=== PATIENT | female | born 1990 | race Caucasian/White ===

== ENCOUNTER 2018-08-08 08:48 | Inpatient (IN) | payer BC, MEDICAID ==
[2018-08-08] MEDS ORDERED: DEXTROSE 5%-LACTATED RINGERS 1,000 ML IV PRN (09:22)
[2018-08-08] MEDS ORDERED: OXYTOCIN/DEXTROSE 5%-WATER 30 UNITS/500 ML BAG IV ONE ×2 (09:22→15:11)
[2018-08-08] MEDS ORDERED: ONDANSETRON HCL/PF 2 MG/ML VIAL IV PRN ×2 (09:22→09:51)
[2018-08-08] MEDS ORDERED: RINGER'S SOLUTION,LACTATED 1,000 ML IV ONE (09:22)
--- NOTE | 2018-08-08 09:48 | HP ---
Chief Complaint - Chief Complaint Date of Service: 08/08/18 Time of Service: 09:29 Chief Complaint: contractions, leaking of fluid History of Present Illness: 27 yo at 39 4/7 wks presents to L&D complaining of contractions for the past 24 hours with clear LOF around 0830 this am. This complicated by mild asthma, anxiety/depression, morbid obesity, and migraines. Rh negative Rubella immune GBS negative Medical History (Last Reviewed 08/08/18 @ 09:38 by Wilian Campbell DO) Generalized anxiety disorder (Chronic) Major depression (Chronic) Morbid obesity Onset Date: 06/13/13 Oligomenorrhea Onset Date: 06/26/16 Anxiety Asthma Onset Date: Unknown Cholecystitis Onset Date: Unknown Depression Onset Date: Unknown Irregular bowel habits Irregular heart beat Irregular menses Onset Date: Unknown Major depressive disorder, recurrent episode Migraine Onset Date: Unknown Sinusitis Onset Date: Unknown Abdominal pain, RUQ Onset Date: 01/10/15 Pleurisy Onset Date: ~2010 Female infertility associated with anovulation Onset Date: 06/13/13 Surgical History: Surgical History (Last Reviewed 08/08/18 @ 09:38 by Wilian Campbell DO) Femur fracture, left Onset Date: ~2016 Hx laparoscopic cholecystectomy Onset Date: 10/16/15 Previous back surgery Onset Date: ~12/2011 Family History: Family History (Last Reviewed 08/08/18 @ 09:38 by Wilian Campbell DO) Father Hypothyroidism Diabetes Grandmother Diabetes Hypertension Grandmother Breast cancer Mother Thyroid disease Diverticulosis Uncle Diabetes Grandfather Hypertension Myocardial infarction Grandfather Hypertension Social History: Preferred Language [place] Abuse History No History of abuse Psych History No pertinent hx Review Of Systems (GEN) - Review of Systems EENTM: Present: No Symptoms Reported Respiratory: Present: No Symptoms Reported Cardiac: Present: No Symptoms Reported Abdominal: Present: No Symptoms Reported Genitourinary: Present: Other - contractions, LOF - clear Musculoskeletal: Present: No Symptoms Reported Neurological: Present: No Symptoms Reported Skin: Present: No Symptoms Reported Endocrine: Present: No Symptoms Reported Immunizations: IMMUNIZATION HX Immunizations Up to Date No History of Influenza Vaccine Yes Hx Pneumococcal Vaccination No Allergies/Adverse Reactions: Allergies Allergy/AdvReac Type Severity Reaction Status Date / Time lactose Allergy Severe severe Verified 08/07/18 08:57 abdominal pain, N/V, constipation cat dander Allergy Intermediate sneezing, Verified 08/07/18 08:57 itchy eyes & thraot rhinitis house dust Allergy Intermediate sneezing, Verified 08/07/18 08:57 itchy eyes & throat, rhinitis No Known Drug Allergies Allergy Verified 08/07/18 08:57 Home Medications: HOME MEDICATIONS vitamin,calcium,wmqzskpe-ezan-mkdbm acid tablet 1 tab PO DAILY [Last Taken 08/07/18 20:30] breast pump See Dose Instructions .ROUTE .MEDSUPPLY #1 ea 06/17/18 [Last Taken Unknown] loratadine 10 mg tablet 10 mg PO DAILY 07/01/18 [Last Taken 08/07/18 20:30] desvenlafaxine succinate ER 50 mg tablet,extended release 24 hr 50 mg PO DAILY # 30 tab 07/09/18 [Last Taken 08/07/18 20:30] Exam - Exam Vital Signs: Vital Signs - Last Taken Temp 36.6 C 08/08/18 09:21 Pulse 67 08/08/18 09:21 Resp 20 08/08/18 09:21 BP 120/81 08/08/18 09:21 Pulse Ox 100 08/08/18 09:21 Constitutional: Present: Alert, Oriented x3, Cooperative ENT Exam: Present: hearing grossly normal Breasts: Present: Exam deferred Respiratory: Present: lungs clear, no respiratory distress Cardiovascular/Chest: Present: regular rate, rhythm, no edema Abdomen: Present: soft, nontender, no rebound tenderness /Rectal: Present: Other - cervix - 3/90/-1, gross ROM - clear fluid Extremity: Present: no pedal edema, no calf tenderness Skin Exam: Present: normal color, warm/dry, no cyanosis Lymphatic: Present: no adenopathy Neurologic: Present: alert, oriented x 3, other - flattened affect Appearance: Present: appropriate appearance Eye contact: Present: cooperative, good eye contact Diagnostic Studies: NST reactive. Assessment/Plan - Assessment/Plan (1) SROM (spontaneous rupture of membranes) Problem: Acute (2) Labor established Problem: Acute (3) Migraines Problem: Inactive Qualifiers: Migraine type: unspecified Status migrainosus presence: without status migrainosus Intractability: not intractable Qualified Code(s): G43.909 - Migraine, unspecified, not intractable, without status migrainosus (4) Asthma Problem: Chronic Qualifiers: Asthma severity: mild Asthma persistence: intermittent Asthma complication type: uncomplicated Qualified Code(s): J45.20 - Mild intermittent asthma, uncomplicated (5) Generalized anxiety disorder Problem: Chronic (6) Major depression Problem: Chronic Qualifiers: Major depression recurrence: recurrent Active/Remission status: in remission of unspecified degree Qualified Code(s): F33.40 - Major depressive disorder, recurrent, in remission, unspecified
[2018-08-08] MEDS ORDERED: NALOXONE HCL 1 MG/1 ML SYRG IV PRN (09:51)
[2018-08-08] MEDS ORDERED: BUPIVACAINE HCL/0.9 % NACL/PF 250 ML EP PRN (09:51)
[2018-08-08] MEDS ORDERED: fentaNYL CITRATE/PF 50 MCG/ML AMPUL IT SCH (10:00)
--- NOTE | 2018-08-08 10:05 | ANES ---
Anesthesia Pre Procedure Eval Vitals/Labs: Last Vital Signs Temp 36.6 C 08/08/18 09:21 Pulse 67 08/08/18 09:21 Resp 20 08/08/18 09:21 BP 120/81 08/08/18 09:21 Pulse Ox 100 08/08/18 09:21 HOME MEDICATIONS vitamin,calcium,muraqklk-akid-zhwma acid tablet 1 tab PO DAILY [Last Taken 08/07/18 20:30] breast pump See Dose Instructions .ROUTE .MEDSUPPLY #1 ea 06/17/18 [Last Taken Unknown] loratadine 10 mg tablet 10 mg PO DAILY 07/01/18 [Last Taken 08/07/18 20:30] desvenlafaxine succinate ER 50 mg tablet,extended release 24 hr 50 mg PO DAILY # 30 tab 07/09/18 [Last Taken 08/07/18 20:30] Allergies/Adverse Reactions: Allergies Allergy/AdvReac Type Severity Reaction Status Date / Time lactose Allergy Severe severe Verified 08/08/18 09:42 abdominal pain, N/V, constipation cat dander Allergy Intermediate sneezing, Verified 08/08/18 09:42 itchy eyes & thraot rhinitis house dust Allergy Intermediate sneezing, Verified 08/08/18 09:42 itchy eyes & throat, rhinitis No Known Drug Allergies Allergy Verified 08/08/18 09:42 - Planned Procedure Planned Procedure: RULE OUT LABOR Medication List Reviewed:: Yes Allergies Verified: Yes Medical History (Last Reviewed 08/08/18 @ 09:38 by Wilian Campbell DO) Generalized anxiety disorder (Chronic) Major depression (Chronic) Morbid obesity Onset Date: 06/13/13 Oligomenorrhea Onset Date: 06/26/16 Anxiety Asthma Onset Date: Unknown Cholecystitis Onset Date: Unknown Depression Onset Date: Unknown Irregular bowel habits Irregular heart beat Irregular menses Onset Date: Unknown Major depressive disorder, recurrent episode Migraine Onset Date: Unknown Sinusitis Onset Date: Unknown Abdominal pain, RUQ Onset Date: 01/10/15 Pleurisy Onset Date: ~2010 Female infertility associated with anovulation Onset Date: 06/13/13 Surgical History (Last Reviewed 08/08/18 @ 10:04 by Conrado Wilcox CRNA) Femur fracture, left Onset Date: ~2016 Hx laparoscopic cholecystectomy Onset Date: 10/16/15 Previous back surgery Onset Date: ~12/2011 Family History (Last Reviewed 08/08/18 @ 10:04 by Conrado Wilcox CRNA) Father Hypothyroidism Diabetes Grandmother Diabetes Hypertension Grandmother Breast cancer Mother Thyroid disease Diverticulosis Uncle Diabetes Grandfather Hypertension Myocardial infarction Grandfather Hypertension - Family Anesthesia History Family History:: no untoward family reactions to anesthesia - Airway/Neck/Teeth Mallampatti Score: 2 Thyromental (T-M) distance: > 6 cm Mandibulo Hyoid distance: > 3 cm - Respiratory Respiratory: lungs clear, normal breath sounds Sleep Apnea currently treated: No Sleep Apnea by current assessment: No - Cardiovascular Patient History - Cardiac/Respiratory: No pertinent hx Tolerates Activity: Fair Heart Sounds: S1 & S2, Regular - Anesthesia Assessment and Plan ASA Class: PS, II, E Anesthesia Type Plan: Epidural
--- NOTE | 2018-08-08 15:10 | OR ---
Operative Report - Dictated Report Narrative: Spontaneous vaginal delivery of viable male at 1426 on 08/07/2018 with Apgars 8 and 8, weighing 3915 g in ANDREY position with tight nuchal cord 1. Cord clamping delayed approximately 1 minute Placenta delivered complete, intact, with three vessel cord Estimated blood loss: Probably 500 mL due to uterine atony which responded to Pitocin 30 mU/m I the and 800 g of Cytotec rectally 1 Anesthesia: epidural Lacerations: Second degree vaginal laceration (4 cm) repaired with 3-0 Vicryl Rapide History for MU Definition: * The number of deliveries resulting in a live the patient experienced prior to current hospitalization * The previous delivery of live twins or any live multiple gestation is considered one live event. *If primagravida or nulliparous is documented select zero for the number of previous live births. Live Events: 0
[2018-08-08] MEDS ORDERED: oxyCODONE HCL/ACETAMINOPHEN 1 TAB TABLET PO PRN (15:11)
[2018-08-08] MEDS ORDERED: BENZOCAINE/MENTHOL 81 SPRAY CAN TP PRN (15:11)
[2018-08-08] MEDS ORDERED: HYDROCORTISONE 30 APPL TUBE TP PRN (15:11)
[2018-08-08] MEDS ORDERED: SENNOSIDES 8.6 MG TABLET PO PRN (15:11)
[2018-08-08] MEDS ORDERED: GLYCERIN/WITCH HAZEL LEAF 40 APPL BOX TP PRN (15:11)
[2018-08-08] MEDS ORDERED: BISACODYL 10 MG SUPP.RECT RC PRN (15:11)
--- NOTE | 2018-08-08 16:36 | ANES ---
Post Anesthesia Assessment - Vital Signs Vitals: Last Vital Signs Temp 36.6 C 08/08/18 16:30 Pulse 76 08/08/18 16:30 Resp 20 08/08/18 16:30 BP 129/71 08/08/18 16:16 Pulse Ox 95 08/08/18 16:30 Airway Patency: Normal - Mental Status Level Of Consciousness: Awake - Pain Level Pain Score: 2 - N/V Assessment Nausea/Vomiting Presence: None Dehydration:: No
--- NOTE | 2018-08-08 16:36 | ANES ---
Post Anesthesia Discharge - Transfer of Care Transfer of Care handoff given to nurse: Yes - Anesthesia Post Op Note Anesthesia Post Op Note: Care transferred to OB RN
--- NOTE | 2018-08-08 16:40 | ANES ---
Anesthesia Procedure Note Procedure Note: ANESTHESIA PROCEDURE NOTE Date of Procedure: 08/08/2018 Time of procedure:[]. 1030 Performed by: Aldo Wilcox CRNA Housekeeping Coordinator: None. Preprocedure diagnosis: Active labor. Post procedure diagnosis: Same. Procedure: Insertion of labor epidural. Indications: The patient is a [27] -year-old [prima para] female in active labor requesting labor epidural for pain management. Findings: See below. Details of the procedure: The patient was placed in a sitting position. Back was prepped with DuraPrep. Patient was then draped in a sterile fashion. Lidocaine 1% was infiltrated to the skin and subcutaneous tissues at the level of the L3 4 interspace. The epidural space was identified using a 18-gauge Tuohy needle with semo-lm-qtothcffzt technique. 20 mcg fentanyl was given intrathecally using a 27 ga. spinal needle. Epidural catheter was inserted without difficulty. Negative test dose was elicited using 5 mL of 1.5% preservative-free lidocaine plus epinephrine 1 200,000. The epidural catheter was then taped and secured in place. EBL: Minimal. Fluids: N/A. Specimen: N/A. Post procedure condition: The patient tolerated the procedure well. No complications were noted. Thank you for this consultation. Tyson CRNA
[2018-08-08] MEDS: DESVENLAFAXINE SUCCINATE 50 MG PO SCH (17:39)
[2018-08-08] MEDS: LORATADINE 10 MG TABLET PO SCH (17:39)
[2018-08-08] MEDS: FERROUS SULFATE 325 MG TABLET PO SCH (17:39)
[2018-08-08] MEDS ORDERED: RHO(D) IMMUNE GLOBULIN 1,500 UNIT SYRINGE IM ONE ×2 (20:26→22:00)
[2018-08-08] MEDS: IBUPROFEN 800 MG TABLET PO PRN (23:27)
[2018-08-08] MEDS: oxyCODONE HCL/ACETAMINOPHEN 1 TAB TABLET PO PRN (23:28)
[2018-08-08] MEDS: DOCUSATE SODIUM 100 MG CAPSULE PO SCH (23:30)
[2018-08-09] MEDS: oxyCODONE HCL/ACETAMINOPHEN 1 TAB TABLET PO PRN ×2 (03:25→18:42)
--- NOTE | 2018-08-09 09:08 | PN ---
Subjective - Date and Time Seen Date: 08/09/18 Time: 09:06 Objective - Vitals Vitals: Last Vital Signs Temp 36.1 C 08/09/18 03:30 Pulse 71 08/09/18 03:30 Resp 16 08/09/18 03:30 BP 123/61 08/09/18 03:30 Pulse Ox 96 08/09/18 03:30 Patient denies complaints. Minimum bleeding. Lochia wnl Abdomen - soft, nontender Uterus - firm, at umbilicus - 1 No calf tenderness Impression: day #1 - s/p spontaneous vaginal delivery. hemorrhage-stable Plan: Continue routine care Cauti Physician Documentation - Urinary Catheter Management Urethral (Hdoge) Date of Insertion: 08/08/18 Time of Insertion: 11:00 Assessment/Plan - Problems/Diagnosis (1) SROM (spontaneous rupture of membranes) Problem: Acute (2) Labor established Problem: Acute (3) Migraines Problem: Inactive Qualifiers: Migraine type: unspecified Status migrainosus presence: without status migrainosus Intractability: not intractable Qualified Code(s): G43.909 - Migraine, unspecified, not intractable, without status migrainosus (4) Asthma Problem: Chronic Qualifiers: Asthma severity: mild Asthma persistence: intermittent Asthma complication type: uncomplicated Qualified Code(s): J45.20 - Mild intermittent asthma, uncomplicated (5) Generalized anxiety disorder Problem: Chronic (6) Major depression Problem: Chronic Qualifiers: Major depression recurrence: recurrent Active/Remission status: in remission of unspecified degree Qualified Code(s): F33.40 - Major depressive disorder, recurrent, in remission, unspecified
[2018-08-09] MEDS: DOCUSATE SODIUM 100 MG CAPSULE PO SCH ×2 (09:58→20:48)
[2018-08-09] MEDS: PRENATAL VITS96/IRON FUM/FOLIC 1 TAB TABLET PO SCH (09:58)
[2018-08-09] MEDS: FERROUS SULFATE 325 MG TABLET PO SCH ×2 (09:58→17:55)
[2018-08-09] MEDS: LORATADINE 10 MG TABLET PO SCH (09:58)
[2018-08-09] MEDS: DESVENLAFAXINE SUCCINATE 50 MG PO SCH ×2 (09:59→20:49)
[2018-08-09] MEDS ORDERED: RHO(D) IMMUNE GLOBULIN 1,500 UNIT SYRINGE IM ONE (10:00)
[2018-08-09] MEDS: IBUPROFEN 800 MG TABLET PO PRN ×2 (12:50→18:42)
[2018-08-09] MEDS ORDERED: DESVENLAFAXINE SUCCINATE 50 MG PO SCH (21:00)
[2018-08-10] MEDS: IBUPROFEN 800 MG TABLET PO PRN (08:48)
[2018-08-10] MEDS: DOCUSATE SODIUM 100 MG CAPSULE PO SCH (08:49)
[2018-08-10] MEDS: LORATADINE 10 MG TABLET PO SCH (08:50)
[2018-08-10 09:06] VITALS: BP 121/87
[2018-08-10] MEDS: PRENATAL VITS96/IRON FUM/FOLIC 1 TAB TABLET PO SCH (10:32)
[2018-08-10] MEDS: FERROUS SULFATE 325 MG TABLET PO SCH (10:32)
== END 2018-08-10 15:00 | disposition home or self-care (01) | DRG 774 ==
LOC: OBCLINIC 08:48 → OB 09:01
PROVIDERS: ADMIT Obstetrics & Gynecology; ATTEND Obstetrics & Gynecology
CPT/HCPCS: 59025; 85460; J2790